=== PATIENT | female | born 1980 | race Caucasian/White ===

== ENCOUNTER → 2024-09-07 11:12 | Outpatient (REF) | payer BC, SELFPAY | LOC: RAD 11:12 | PROVIDERS: ATTENDING PHYSICIAN Specialist | DX: N20.0 Calculus of kidney (principal) | CPT/HCPCS: 74018 ==

== ENCOUNTER 2024-12-12 17:34 | Emergency (ER) | payer BC, SELFPAY ==
[2024-12-12 17:39] VITALS: BP 138/68
[2024-12-12 18:03] LABS: Urine Character Clear (Clear)
[2024-12-12 18:04] LABS: Hematocrit 37.8 % (37.0-47.0); Hemoglobin 13.3 g/dL (12.0-16.0); Mean Corp Hgb Conc. 35.2 g/dL (33.0-37.0); Mean Corpuscular Volume 85.9 fL (81.0-99.0); Nucleated Red Blood Cells % 0 %; Platelet Count 265 10^3/uL (130-400); Red Cell Dist. Width 12.6 % (11.5-14.5)
[2024-12-12 18:20] LABS: Urine Squamous Cell 0-2 /LPF (Few)
[2024-12-12 18:21] LABS: ALT (SGPT) 26 U/L (0-35); AST (SGOT) 22 U/L (14-36); Albumin 5.2 g/dl (3.5-5.0); Alkaline Phosphatase 42 U/L (38-126); Blood Urea Nitrogen 18 mg/dl (7-17); Calcium 9.5 mg/dl (8.4-10.2); Carbon Dioxide 20 mmol/L (22-30); Chloride 108 mmol/L (98-107); Glucose 91 mg/dl (70-99); Potassium 4.3 mmol/L (3.5-5.1); Sodium 138 mmol/L (135-145); Total Protein 8.2 g/dl (6.3-8.2); Urine Red Blood Cell 0-2 /HPF (0-2); Urine White Cell 0-2 /HPF (0-5); eGFR > 60.00
[2024-12-12 20:39] VITALS: BMI 23.1
[2024-12-12] MEDS: TORADOL 15 MG IV (20:54)
[2024-12-12] MEDS: NSS 500 IV (20:55)
--- NOTE | 2024-12-12 20:58 | ED.GENMED ---
History of Present Illness
General
Chief Complaint: Flank Pain
Source: patient
Exam Limitations: none
Time Seen by Provider: 12/12/24 20:26
Nursing documentation reviewed up to this point in time: agreed with
History of Present Illness
History of Present Illness:
Patient presents to ED secondary to worsening left flank pain, radiating to the front over the past 2 weeks. Patient was seen at another ED 1 week ago, where she received CT scan, which revealed kidney stones in her kidney, but no stones within her
ureter. Patient was given Lidoderm patch, without improvement symptoms. Denies fever or chills. Denies trauma. Denies difficulty urination. Patient states that her symptom is similar to 2 years ago, when she had kidney stones.
Past History
Past History
ED Past Medical History: None; Negative Asthma, HTN, Hypercholesterolemia or NIDDM
ED Past Surgical History: None
Social History
Tobacco: Non-smoker
Alcohol: None
Personal:
Living: with family
Review of Systems
Review of Systems
Allergies reviewed?: Yes
Constitutional: Reports no symptoms
ABD/GI: Reports abdominal pain and nausea; Denies vomiting
: Reports flank pain; Denies dysuria or difficulty voiding
Musculoskeletal: Reports no symptoms
Skin: Reports no symptoms
Neurological: Reports no symptoms
Phy Exam
Physical Exam
Physical Exam:
Physical Exam
General: mild painful distress, not acutely ill. afebrile
Head: nc/at. eomi
Neck: supple. no meningeal signs.
Heart: s1/s2 regular rate and rhythm
Lungs: no acute respiratory distress. clear bilaterally
Abdomen: normal bowel sounds. not tender.
Neuro: alert and oriented x 3. no focal neurological deficits
Skin: no rash
Psychiatric: well kept. interactive and cooperative
Extremities: no edema. no calf tenderness
Course
Orders/Labs/Results
Orders:
Orders
12/12/24 17:51
Complete Blood Count/With Diff Urgent
Comprehensive Metabolic Panel Urgent
HCG, Serum Qualitative Screen Urgent
Comment: ADDON
Urinalysis Reflex To Culture Urgent
Date Specimen was Collected: 12/12/24
Time Specimen was Collected: 17:42
Urine Microscopic Reflex Cult Urgent
12/12/24 20:31
CT Abd/pel Without Iv Or Oral Urgent
Comment:
Reason For Exam: left flank pain w hx kidney stone
0.9% Sodium Chloride 500 ml [Nss] 500 ml IV BOLUS
Ketorolac [Toradol] 15 mg IV NOW STA
12/12/24 21:07
Add On- LAB Urgent
Tests Added?: serum hcg, qualitative
Abnormal Lab Results
12/12/24
17:51
Chloride 108 H mmol/L
(98-107)
Carbon Dioxide 20 L mmol/L
(22-30)
BUN 18 H mg/dl
(7-17)
Albumin 5.2 H g/dl
(3.5-5.0)
Ur Occult Blood Reflex 1+ A
(Negative)
12/12/24 17:51
12/12/24 17:51
Vital Signs
Initial and Last Documented VS:
Initial Vital Signs
Temp Pulse Resp BP Pulse Ox
98.4 F 76 16 138/68 98
12/12/24 17:39 12/12/24 17:39 12/12/24 17:39 12/12/24 17:39 12/12/24 17:39
Last Documented Vital Signs
Temp Pulse Resp BP Pulse Ox
98.1 F 67 18 115/74 100
12/12/24 23:32 12/12/24 23:32 12/12/24 23:32 12/12/24 23:32 12/12/24 23:32
MDM/Problems Addressed
MDM/Problems Addressed:
CT report reviewed and discussed with patient and family. Patient reports significant treatment after treatment. Unclear etiology of her pain at this time, however, difficult to exclude potential kidney stone involvement, as there is 4.4 mm kidney
stone noted on the inferior pole of left kidney. As such, with patient's presenting symptoms similar to her previous episode of kidney stone, patient will be referred to her urologist, Dr. Diaz, for an outpatient consultation. Advised to
return to ED with worsening symptoms, i.e. fever/worsening pain/inability urinate. Patient expressed understanding time of discharge, to the care of her family.
*Pulse Oximetry
SaO2: 98
Oxygen Mode of Delivery: Room air
Patient hypoxic: no
*Critical Care Note
Total Time (30-74mins, 75-104mins- exclusive of procedures): Not Applicable
ED Attending Note
-
Portions of this chart may have been created with voice recognition software.� Occasional wrong word or��sound alike� substitutions may have occurred due to the inherent limitations of voice recognition software.
Discharge Plan
Departure
Patient Disposition: Home (Routine Discharge)
Date of Disposition: 12/12/24
Time of Disposition: 23:24
Patient with high blood pressure during this ER visit?: Yes
Condition: Good
Discharge Problem:
Flank pain
Instructions: Flank Pain (DC)
Prescriptions:
New
ketorolac 10 mg tablet
10 mg PO Q8H PRN (Reason: Pain) Qty: 14 0RF
Rx Instructions:
maximum total duration of 5 days from all oral, intranasal, or parenteral formulations
No Action
multivitamin with folic acid [Tab-A-Reba] 1 TABLET tablet
1 tab PO DAILY
Referrals:
Albert Diaz MD [Family Provider, Urology]
Activity Restrictions/Additional Instructions:
As discussed, please follow-up with your primary care physician and/or referred urologist for further evaluation and treatment. Please consider return to ED with worsening symptoms, i.e. fever/worsening pain/inability to urinate. Your prescription
has been sent electronically to [facility] pharmacy in [place].
Interventions
Interventions:
*Risk Screen - Suicide Last Done: 12/12/24 17:39
*General Assessment Last Done: 12/12/24 20:40
*Neglect/Abuse Screening Last Done: 12/12/24 17:39
*ED- Fall Risk Assessment Last Done: 12/12/24 20:40
*ED COVID-19 Vaccine History Last Done: 12/12/24 20:40
*Nursing Disposition Last Done: 12/12/24 23:32
KR-Qyplla-Wmyaffmosy Assessment Last Done: 12/12/24 21:01
ED-Female Genitourinary Assessment Last Done: 12/12/24 21:01
Discharge Date and Time
Discharge Date/Time: 12/12/24 23:35
Print Language: CAMEROONIAN
[2024-12-12 21:37] LABS: HCG, Serum Qualitative Screen Negative
[2024-12-12 23:32] VITALS: BP 115/74
== END 2024-12-12 23:35 | disposition home or self-care (01) ==
LOC: EMR 17:34
PROVIDERS: EMERGENCY PHYSICIAN Emergency Medicine; FAMILY PHYSICIAN Specialist
DX: R10.9 Unspecified abdominal pain (principal); N20.0 Calculus of kidney
CPT/HCPCS: 96374; 96361; 99284; 74176; 80053; 81003; 81015; 84703; 85025